=== PATIENT | female | born 1980 | race African-American/Black ===

== ENCOUNTER 2018-12-25 10:42 | Emergency (ER) | payer SELFPAY ==
[~2018-12-25] VITALS: Ht 154.9 cm; Wt 79.6 kg
[2018-12-25 10:59] VITALS: BP 135/81
--- NOTE | 2018-12-25 11:19 | PHYS DOC ---
Past History Past Medical History: Bipolar, Depression Past Surgical History: Smoking: Greater than 1 pack/day Alcohol Use: Occasionally Drug Use: Marijuana Adult General Chief Complaint Chief Complaint: CHEST PAIN HPI HPI 38-year-old relatively healthy female presents with a one-week history of waxing and waning chest discomfort. She states she is been having a lot of anxiety recently. She states her most recent episode occurred today while she was talking to a counselor. She does state the pain radiates into her right arm and her left arm. She also states occasionally she has some pain in her back. She denies any nausea or vomiting. She denies any shortness of breath or dyspnea on exertion. She's had no fever chills or sweats. She denies hemoptysis. She has not had any cough or congestion.[] Review of Systems Review of Systems Constitutional: Denies fever or chills [] Eyes: Denies change in visual acuity, redness, or eye pain [] HENT: Denies nasal congestion or sore throat [] Respiratory: Denies cough or shortness of breath [] Cardiovascular: No additional information not addressed in HPI [] GI: Denies abdominal pain, nausea, vomiting, bloody stools or diarrhea [] : Denies dysuria or hematuria [] Musculoskeletal: Denies back pain or joint pain [] Integument: Denies rash or skin lesions [] Neurologic: Denies headache, focal weakness or sensory changes [] Endocrine: Denies polyuria or polydipsia [] All other systems were reviewed and found to be within normal limits, except as documented in this note. Current Medications Current Medications Current Medications Medications (Trade) Dose Ordered Sig/Sita Start Time Stop Time Status Last Admin Dose Admin Aspirin (Children'S Aspirin) 324 mg 1X ONCE 12/25/18 11:30 12/25/18 11:31 Diazepam (Valium) 10 mg 1X ONCE 12/25/18 11:30 12/25/18 11:31 Allergies Allergies Allergies Coded Allergies Type Severity Reaction Last Updated Verified cat dander Allergy Intermediate 12/25/18 Yes dog dander Allergy Intermediate 12/25/18 Yes peach Allergy Unknown 12/25/18 Yes Physical Exam Physical Exam Constitutional: Well developed, well nourished, no acute distress, non-toxic appearance. [] HENT: Normocephalic, atraumatic, bilateral external ears normal, oropharynx moist, no oral exudates, nose normal. [] Eyes: PERRLA, EOMI, conjunctiva normal, no discharge. [] Neck: Normal range of motion, no tenderness, supple, no stridor. [] Cardiovascular:Heart rate regular rhythm, no murmur [] Lungs & Thorax: Bilateral breath sounds clear to auscultation [] Abdomen: Bowel sounds normal, soft, no tenderness, no masses, no pulsatile masses. [] Skin: Warm, dry, no erythema, no rash. [] Back: No tenderness, no CVA tenderness. [] Extremities: No tenderness, no cyanosis, no clubbing, ROM intact, no edema. [] Neurologic: Alert and oriented X 3, normal motor function, normal sensory function, no focal deficits noted. [] Psychologic: Extremely anxious. [] Current Patient Data Vital Signs Vital Signs Date Time Temp Pulse Resp B/P (MAP) Pulse Ox O2 Delivery O2 Flow Rate FiO2 12/25/18 10:59 98.1 54 19 99 Room Air EKG EKG [EKG: Sinus bradycardia rate of [address]-T changes] Radiology/Procedures Radiology/Procedures [] Impressions: PROCEDURE: CHEST AP ONLY EXAM: CHEST 1 VIEW. HISTORY: Chest pain. COMPARISON: 12/07/2009. FINDINGS: A frontal view of the chest is obtained. There are no confluent infiltrates. There is no pneumothorax or pleural effusion. The heart is not enlarged. IMPRESSION: 1. No confluent infiltrates. Course & Med Decision Making Course & Med Decision Making Pertinent Labs and Imaging studies reviewed. (See chart for details) [ED course: Evaluation reveals a 38-year-old extremely anxious female was chest discomfort. Patient stated the chest pain had been ongoing and fairly constant for approximately one week. Her workup in the emergency department was normal. The workup included chest x-ray, troponin, d-dimer and EKG all of which were unrevealing. I believe most of her symptoms were related to anxiety. She was given Valium during her stay in the department which did help alleviate her symptoms. At this point, I feel she is safe for discharge home] Dragon Disclaimer Dragon Disclaimer This electronic medical record was generated, in whole or in part, using a voice recognition dictation system. 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
[2018-12-25 11:21] LABS: BASO % 1 % (0-3); EOS # 0.1 x10^3/uL (0.0-0.7); EOS % 3 % (0-3); HEMATOCRIT 36.9 % (36.0-47.0); HEMOGLOBIN 12.1 g/dL (12.0-15.5); LYMPH # 1.9 x10^3/uL (1.0-4.8); LYMPH % 35 % (24-48); MEAN CORPUSCULAR HEMOGLOBIN 28 pg (25-35); MEAN CORPUSCULAR HGB CONC 33 g/dL (31-37); MEAN CORPUSCULAR VOLUME 86 fL (79-100); MONO # 0.6 x10^3/uL (0.0-1.1); MONO % 10 % (0-9); NEUT # 2.7 x10^3uL (1.8-7.7); NEUT % 51 % (31-73); PLATELET COUNT 364 x10^3/uL (140-400); RED CELL DISTRIBUTION WIDTH 16.2 % (11.5-14.5); WHITE BLOOD COUNT 5.3 x10^3/uL (4.0-11.0)
--- NOTE | 2018-12-25 11:27 | RAD ---
EXAM: CHEST 1 VIEW. HISTORY: Chest pain. COMPARISON: 12/07/2009. FINDINGS: A frontal view of the chest is obtained. There are no confluent infiltrates. There is no pneumothorax or pleural effusion. The heart is not enlarged. IMPRESSION: 1. No confluent infiltrates. Electronically signed by: Jackie Patel MD (12/25/2018 11:24 AM) [place] [id number]
[2018-12-25] MEDS ORDERED: ASPIRIN 81 MG TAB.CHEW PO ONE (11:30)
[2018-12-25] MEDS ORDERED: diazePAM 5 MG TABLET PO ONE (11:30)
[2018-12-25 11:32] LABS: ALBUMIN 3.4 g/dL (3.4-5.0); CALCIUM 8.9 mg/dL (8.5-10.1); CREATININE 0.8 mg/dL (0.6-1.0); GFR 98.2; TOTAL BILIRUBIN 0.5 mg/dL (0.2-1.0); TOTAL PROTEIN 6.8 g/dL (6.4-8.2)
[2018-12-25] MEDS ORDERED: DIAZ5TAB4 PO (12:04)
--- NOTE | 2018-12-26 12:43 | EKG ---
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
== END 2018-12-25 11:58 | disposition home or self-care (01) ==
LOC: ER 10:42
DX: R07.89 Other chest pain (principal); F41.9 Anxiety disorder, unspecified; F31.9 Bipolar disorder, unspecified; F17.200 Nicotine dependence, unspecified, uncomplicated; Z91.048 Other nonmedicinal substance allergy status
CPT/HCPCS: 36415; 71045; 80053; 84484; 85025; 85379; 93005; 99284; G0480